=== PATIENT | male | born 1970 | race Two or more races ===

== ENCOUNTER 2020-03-18 12:34 | Emergency (ER) | payer OTHER ==
[~2020-03-18] VITALS: Ht 167.6 cm; Wt 77.6 kg
[2020-03-18 12:39] VITALS: BP 124/88
--- NOTE | 2020-03-18 12:39 | NUR ---
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
--- NOTE | 2020-03-18 12:53 | NUR ---
PA AT BEDSIDE EVALUATING PT.
--- NOTE | 2020-03-18 12:57 | NUR ---
FIRST ENCOUNTER WITH PT: PT STATES LBP X2 WEEKS. PT STATES INTERMITTENTLY HAS GOTTEN WORSE OVER THE PAST TWO DAYS. DENIES TRAUMA TO BACK. 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
[2020-03-18] MEDS ORDERED: KETOROLAC 30 MG/1 ML IM ONE (13:00)
[2020-03-18] MEDS ORDERED: KETOROLAC 30 MG/1 ML ONE (13:00)
--- NOTE | 2020-03-18 13:03 | NUR ---
PT MEDICATED PER EMAR. XR TRANSPORTING PT TO RADIOLOGY VIA GURNEY.
--- NOTE | 2020-03-18 13:51 | NUR ---
PT BEING DC HOME IN A STABLE CONDITION. DC INSTRUCTIONS DISCUSSED WIHT PT. PT VERBALIZED UNDERSTANDING. NO FURTHER QUESTIONS OR CONCERNS WERE EXPRESSED AT THAT TIME. PT TO AMBULATED WITH RN TO DC DESK.
== END 2020-03-18 13:52 | disposition home or self-care (01) ==
LOC: ED 13:45
DX: S39.012A Strain of muscle, fascia and tendon of lower back, initial encounter (principal); M51.16 Intervertebral disc disorders with radiculopathy, lumbar region; R20.0 Anesthesia of skin; X58.XXXA Exposure to other specified factors, initial encounter; Y93.89 Activity, other specified; Y92.89 Other specified places as the place of occurrence of the external cause; Y99.8 Other external cause status
CPT/HCPCS: 72110; 96372; 99283; J1885